=== PATIENT | male | born 1980 | race Caucasian/White ===

== ENCOUNTER 2019-06-20 23:48 | Emergency (ER) | payer OTHER ==
[~2019-06-20] VITALS: Ht 167.6 cm; Wt 63.1 kg
[~2019-06-20 23:48] MED LIST: ATOR40TA68 PO; CLOP75TA27 PO; FURO40TA4 PO; IBUP-1542 PO; LEVO25TA6 PO; LISI10TA2 PO; METO-448 PO; ONDA4TAB14 PO; SPIR100T4 PO
[2019-06-20 23:54] VITALS: Ht 167.6 cm; Wt 63.1 kg
[2019-06-21] MEDS ORDERED: ONDANSETRON 4 MG INJ IV STA (01:15)
[2019-06-21] MEDS ORDERED: SOD CHLORIDE 0.9% 1,000 ML IV STA (01:15)
[2019-06-21] MEDS ORDERED: morphine 4 MG/ML VIAL IV STA (01:15)
[2019-06-21] MEDS ORDERED: IOHEXOL 300MG/ML 150 ML BTL ONE (01:40)
[2019-06-21] MEDS ORDERED: SOD CHLORIDE 0.9% 100 ML ONE (01:40)
[2019-06-21] MEDS ORDERED: SOD CHLORIDE 0.9% 500 ML IV STA (04:51)
[2019-06-21] MEDS ORDERED: METOCLOPRAMIDE 10 MG INJ IV STA (04:51)
[2019-06-21] MEDS ORDERED: HYDROmorphONE 1 MG/ML SYG IV STA (04:51)
[2019-06-21 05:37] VITALS: BP 154/78; PULSE 90; RESP 18
== END 2019-06-21 05:38 | disposition home or self-care (01) ==
LOC: FTE 23:48
DX: R10.84 Generalized abdominal pain (principal); I10 Essential (primary) hypertension; E11.9 Type 2 diabetes mellitus without complications; R11.2 Nausea with vomiting, unspecified; Z79.01 Long term (current) use of anticoagulants
CPT/HCPCS: 36415; 74177; 80053; 81001; 83690; 85025; 93005; 96361; 96374; 96375; J1170; J2270; J2405; J2765; J7030; J7040; Q9967; Z7502; Z7610